=== PATIENT | female | born 1990 | race Caucasian/White ===

== ENCOUNTER 2020-05-26 15:01 | Emergency (ER) | payer BC, SELFPAY ==
[2020-05-26] VITALS (7 sets, daily range): BP systolic 103–143; BP diastolic 64–83; PULSE 55–62; RESP 15–18; TEMP 36.3; O2SAT 97–100
--- NOTE | ~2020-05-26 | XR_ITS ---
EXAMINATION: XR chest 2V 05/26/2020 16:09 INDICATION: Shortness of breath and chest pressure. Lightheadedness. PROCEDURE: 2 view chest COMPARISON: No prior studies for comparison. FINDINGS: The lungs are clear. The cardiomediastinal silhouette is within normal limits. There are no pleural effusions. There is no pneumothorax suspected. IMPRESSION: 1: NO ACUTE CARDIOPULMONARY DISEASE. Reviewed, dictated and finalized at location A.
--- NOTE | 2020-05-26 15:09 | ECG_ITS ---
Measurements Intervals [place] Rate: 62 P: 140 TN: 139 QRS: 144 QRSD: 92 T: -30 QT: 436 QTc: 444 Interpretive Statements SINUS RHYTHM ARM LEADS REVERSED BORDERLINE ST-T WAVE ABNORMALITY- ANT/INF LEADS BASELINE ARTIFACT- I, III, AVL BORDERLINE ECG Electronically Signed On 05-26-2020 15:19:31 CDT by Stevie Rene D.O.
[2020-05-26] MEDS: ASPIRIN 81 MG CHEWABLE TABLET 324 MG PO (15:29)
[2020-05-26 15:31] LABS: Basophils Percent Auto 0.5 % (0.2-1.2); Eosinophils Absolute Auto 0.1 K/mm3 (0-0.3); Eosinophils Percent Auto 0.9 % (0-4.4); Hemoglobin 12.1 g/dL (12.0-15.0); Immature Granulocyte Absolute 0.01 K/mm3 (0.00-0.031); Immature Granulocyte Percent A 0.2 % (0-0.5); Lymphocytes Percent Auto 38.3 % (18.3-44.2); Mean Corpuscular HGB Conc 33.6 g/dl (32-36); Mean Corpuscular Hemoglobin 28.3 pg (26-34); Mean Corpuscular Volume 84.1 fl (80-100); Mean Platelet Volume 10.5 fl (7.4-10.4); Monocytes Absolute Auto 0.5 K/mm3 (0.1-0.6); Monocytes Percent Auto 8.8 % (2.6-8.5); Neutrophils Absolute Auto 2.8 K/mm3 (1.3-6.7); Neutrophils Percent Auto 51.3 % (45.5-73.1); Platelet Count Result 254 k/mm3 (150-375); Red Blood Count 4.28 M/mm3 (4.2-5.4); Red Cell Distribution Width 13.2 % (11.5-14.5); White Blood Count 5.5 K/mm3 (4.5-10.0)
[2020-05-26 15:41] LABS: Anion Gap 15.2 mmol/L (7-16); Blood Urea Nitrogen 8 mg/dL (7-17); Calcium 8.8 mg/dL (8.4-10.2); Carbon Dioxide 26 mmol/L (22-30); Chloride 100 mmol/L (98-107); Estimated CRCL calculation 129 ml/min; Estimated Glomerular Filt Rate > 60; Glucose 80 mg/dL (65-105); Potassium 3.2 mmol/L (3.4-5.0); Sodium 138 mmol/L (137-145)
[2020-05-26 15:42] LABS: INR 1.1; Partial Thromboplastin Time 23.7 SECONDS (22.3-36.8); Prothrombin Time 13.6 Seconds (11.1-14.7)
[2020-05-26 15:53] LABS: Troponin I < 0.012 ng/mL (0.000-0.034)
--- NOTE | 2020-05-26 16:14 | ED.ARRPALP ---
HPI - Arrhythmia/Palpitations General Chief Complaint: Arrhythmia/Palpitations <Feliz Gutiérrez PA-C - Last Filed: 05/26/20 17:31> Stated Complaint: palpitations <Feliz Gutiérrez PA-C - Last Filed: 05/26/20 17:31> Time Seen by Provider: 05/26/20 16:00 <Feliz Gutiérrez PA-C - Last Filed: 05/26/20 17:31> Source: patient <COBY Chua Last Filed: 05/26/20 17:31> Mode of arrival: ambulatory <Feliz Gutiérrez PA-C - Last Filed: 05/26/20 17:31> Limitations: no limitations <Feliz Gutiérrez PA-C - Last Filed: 05/26/20 17:31> History of Present Illness HPI narrative: Patient is a 30-year-old female who presents to emergency department for evaluation of palpitations and chest tightness and feeling dyspneic over the last day patient notes she has had similar occurrence in the past which has not lasted as long patient on arrival to emergency department in the room in no distress patient has not been seen for this complaint nor she taken anything for her symptoms denies recent illness and is otherwise resting comfortably in the room on arrival noticing history of anxiety denies any suicidal or homicidal ideation <Feliz Gutiérrez PA-C - Last Filed: 05/26/20 17:31> Related Data Home Medications: Home Medications Medication Instructions Recorded Confirmed No Home Medications 05/26/20 05/26/20 <Feliz Gutiérrez PA-C - Last Filed: 05/26/20 17:31> Allergies/Adverse Reactions: Allergies Allergy/AdvReac Type Severity Reaction Status Date / Time No Known Allergies Allergy Verified 05/26/20 15:24 <Feliz Gutiérrez PA-C - Last Filed: 05/26/20 17:31> Review of Systems Review of Systems: All systems reviewed & are unremarkable except as noted in HPI and below <Feliz Gutiérrez PA-C - Last Filed: 05/26/20 17:31> PMFSH Past Medical History Medical History: Medical History (Updated 05/26/20 @ 17:31 by Feliz Gutiérrez PA-C) Anxiety <COBY Chua Last Filed: 05/26/20 17:31> Social History Social History: Social History (Updated 05/26/20 @ 16:16 by Feliz Gutiérrez PA-C) Smoking status: Current every day smoker Gender identity (if verbalized by the patient): Female <Feliz Gutiérrez PA-C - Last Filed: 05/26/20 17:31> Exam Narrative: Exam Narrative: GENERAL: Well-appearing, well-nourished, and in no acute distress. HEAD: Normocephalic, atraumatic. EYES: PERRLA and EOMI. ENT: Nares clear, no rhinorrhea or epistaxis. Mucous membranes moist. Oropharynx without tonsillar hypertrophy exudate or other lesions. NECK: Supple. No adenopathy or masses. CHEST: Clear to auscultation. No respiratory distress. No wheezes rales or rhonchi HEART: Regular rate and rhythm. No murmur heard. EXTREMITIES: Normal range of motion. No edema. SKIN: Warm, dry, no rash. NEURO: No focal deficits. Alert and oriented x3. PSYCH: Normal mood and affect. <Feliz Gutiérrez PA-C - Last Filed: 05/26/20 17:31> Course Course Emergency Course: Patient in the room in no distress no high risk changes in the evaluation resting comfortably felt appropriate for outpatient reevaluation by primary care patient is aware of case findings treatment plan diagnosis <Feliz Gutiérrez PA-C - Last Filed: 05/26/20 17:31> Vital Signs Vital signs: Vital Signs Temperature 97.4 F L 05/26/20 15:05 Pulse Rate 58 L 05/26/20 15:05 Respiratory Rate 17 05/26/20 15:05 Blood Pressure 126/74 05/26/20 15:05 Pulse Oximetry 100 05/26/20 15:05 Temperature 97.4 F L 05/26/20 15:05 Pulse Rate 58 L 05/26/20 17:30 Respiratory Rate 18 05/26/20 17:30 Blood Pressure 109/66 05/26/20 17:30 Pulse Oximetry 98 05/26/20 17:30 <Feliz Gutiérrez PA-C - Last Filed: 05/26/20 17:31> Vital Signs Temperature 97.4 F L 05/26/20 15:05 Pulse Rate 58 L 05/26/20 15:05 Respiratory Rate 17 05/26/20 15:05 Blood Pressure 126/74 07
[2020-05-26 17:14] LABS: D Dimer 0.27 ug/mL (<0.48)
== END 2020-05-26 18:43 | disposition home or self-care (01) ==
PROVIDERS: Emergency Medicine Emergency Medical Services; Emergency Provider Emergency Medicine; PCP Emergency Medicine
DX: R00.2 Palpitations (principal); F17.200 Nicotine dependence, unspecified, uncomplicated
CPT/HCPCS: 36415; 71046; 80048; 84484; 85025; 85380; 85610; 85730; 93005; 96374; 99284; A9270; J2060

== ENCOUNTER → 2021-04-07 12:02 | Outpatient (REF) | payer BC, SELFPAY | LOC: ANHLAB 12:02 | PROVIDERS: PCP Emergency Medicine; Visit Provider Nurse Practitioner | DX: D36.10 Benign neoplasm of peripheral nerves and autonomic nervous system, unspecified (principal) | CPT/HCPCS: 88305 ==

== ENCOUNTER 2024-06-27 00:37 | Day surgery (SDC) | payer BC, SELFPAY ==
[2024-06-26 09:05] VITALS: BMI 27.6
--- NOTE | 2024-06-26 09:11 | PC.NURSE ---
Report to the Outpatient Waiting Room, entrance under the green pavilion located off [facility], at time 0730_ on date _06/27/24_. Planned Procedure Time: _0930.? Time changes happen often and if your time is changed the preop area will call you the afternoon before. - You and your visitor will be asked to self-screen and do not enter if you have any COVID symptoms. Please call surgeon if you need to reschedule. - A mask is optional within the hospital at this time. Patients may have clear liquids (water, carbonated beverages, clear teas, apple juice) until 3 hours prior to surgery with a maximum of 20 ounces. - No food from midnight until time of surgery and no smoking - Infants may have breast milk until 4 hours before surgery, formula 6 hours prior to surgery. - Children will be allowed to drink immediately following surgery.? If applicable, please bring a bottle or sippy cup to assist with drinking. Juice, water, soda, and popsicles are readily available.? For infants on formula, please bring formula the day of surgery.? Pacifiers are allowed. Take only the following medications with a SIP of water on the morning of surgery: __ESCITALOPRAM DO NOT STOP ANY OF YOUR OTHER PRESCRIPTION MEDICATIONS PRIOR TO SURGERY EXCEPT THE FOLLOWING Medications to discontinue per physician NONE Date to take last dose Please no make-up, nail pashto, hairspray, perfume, deodorant, or body powder the day of surgery.? No jewelry (including any body piercings) or valuables the day of surgery, leave them at home.? Please take a shower or bath the night before, or the morning of, surgery with HIBICLENS antibacterial soap.? Wear comfortable, loose fitting clothing.? Children are encouraged to wear pajamas. - Jewelry must be removed prior to entering the operating room.? Rings and piercings that are not removed may be cut off. - The hospital will not accept responsibility for valuables.? - Please leave all valuables, including medications, at home the day of surgery. If you are going home after surgery, a licensed route sales delivery driver must drive you home.? - NO public transportation without another adult if you receive anesthesia. - We recommend that an adult stay with you for 24 hours following discharge. - We also recommend that you do not drive, make important decision, drink alcoholic beverages, or take any drugs that were not prescribed by your health care provider for at least 24 hours after your discharge time. For Pediatric surgeries, we recommend two adults accompany the child home. Follow any additional instructions given to you from your surgeon. Telephone instructions given to __PATIENT___and asked if any additional questions and then verbalized understanding. Patient advised to call surgeon office or pre surgery nurse liaison [phone] if any additional questions.
[2024-06-27] VITALS (12 sets, daily range): BP systolic 104–116; BP diastolic 60–69; PULSE 70–83; RESP 10–16; TEMP 36.6–36.7; O2SAT 99–100
--- NOTE | 2024-06-27 08:02 | WPDHPUPDATE1 ---
History and Physical Update Update Date/Time: 06/27/24 08:02 History and Physical has been reviewed, including an updated exam of the patient. There are NO changes in the patient's condition. Risks, benefits, and alternatives have been discussed and questions answered. Patient agrees to proceed with procedure.
[2024-06-27] MEDS: ACETAMINOPHEN 500 MG TABLET 1000 MG PO (08:05)
[2024-06-27] MEDS: LACTATED RINGERS 1,000 ML 30 ML IV CONT ×2 (08:20→11:22)
[2024-06-27] MEDS: KETOROLAC 15 MG/ML VIAL (*BKC) IV PUSH (09:12)
--- NOTE | 2024-06-27 09:46 | W.PM.PROC2 ---
Procedure Note - Detailed Date of Procedure 06/27/24 Pre-op Diagnosis Chr Cholelithiasis with cholelithiasis Post-op Diagnosis Same Procedure Performed Laparoscopic cholecystectomy Surgeon Zach Cid MD [employer] Mirtha Nava [facility] Anesthesia General and Local Indications Patient has had multiple episodes of postprandial right upper quadrant abdominal pain that will radiate to her back. It is associated with eating spicy and fatty foods. She often has nausea and even vomiting. She had an ultrasound which showed gallstones and a positive sonographic Carrasco sign. She is taken to surgery now for laparoscopic cholecystectomy for chronic cholecystitis with gallstones. Findings Chronic inflammation, multiple gallstones, normal liver, no biliary ductal dilatation Description of Procedure Patient was taken to surgery and induced into general anesthesia. The abdomen was prepped and draped. Trocars were placed in the usual fashion using iHydroRun optical trocars and a 5 mm camera. The gallbladder was decompressed with a laparoscopic aspirator. The cholecystotomy was closed with a Vicryl endoloop. Traction was placed on the fundus of the gallbladder as well as on the infundibulum. Dissection was carried out in the cholecystohepatic triangle. The cystic duct and cystic artery were dissected out very clearly. The gallbladder was dissected off the liver at its lower 3rd. Critical view was achieved. We then securely clipped and divided the cystic duct and cystic artery. The gallbladder was then further dissected free of its attachments to the liver. Once the gallbladder was free from the liver, it was placed in an Endo-Catch bag and retrieved through the 10 11 epigastric trocar. Once the gallbladder was removed, the epigastric trocar was replaced. We reviewed the right upper quadrant and other areas of dissection. Some irrigation and suctioning were used as well. All looked good with no evidence of bleeding or bile leakage. We then evacuated CO2 and removed the trocar sleeves. The fascia at the epigastric trocar site was closed with an 0 Vicryl suture. Skin wounds were closed with subcuticular 4-0 Monocryl skin suture. The wounds were dressed with Exofin surgical adhesive. The patient was awakened and taken to recovery in good condition. Sponge needle counts were correct x2. Estimated Blood Loss -5 Drains No Packing No Pathology Yes (Gallbladder) Complications None Condition Stable Disposition PACU [facility] Billing Surgery - Charge Forward: Surgery Billing (Laparoscopic cholecystectomy)
--- NOTE | 2024-06-27 09:47 | WPDANESEPPF ---
Anes - Initial Pre Proc Eval Procedure: Operation Date: 06/27/24 09:30 Proposed Procedures p Laparoscopic Cholecystectomy, Possible Open - Zach Cid MD Date/Time: 06/27/24 09:47 Surgeon: Zach Cid MD Pre Op Diagnosis: Chr Cholelithiasis with Calclous Patient Data Age: 34 Gender: F Height: 1.69 m Weight: 78.8 kg Last Vital Signs Temp 97.8 F 06/27/24 08:31 Pulse 81 06/27/24 08:31 Resp 16 06/27/24 08:31 BP 112/65 06/27/24 08:31 Pulse Ox 100 06/27/24 08:31 O2 Del Method Room Air 06/27/24 08:31 Allergies Allergy/AdvReac Type Severity Reaction Status Date / Time No Known Allergies Allergy Verified 06/27/24 07:48 Home Medications Medication Instructions Recorded Confirmed Type escitalopram oxalate 10 mg tablet 10 mg PO DAILY 04/07/21 06/27/24 History phentermine 37.5 mg tablet 37.5 mg PO DAILY 06/26/24 06/27/24 History ketorolac 10 mg tablet 10 mg PO Q6H 4 days #16 tabs 06/27/24 06/27/24 Rx oxycodone-acetaminophen 5 mg-325 0.5 - 1 tablet PO Q6H PRN pain #10 06/27/24 06/27/24 Rx mg tablet tabs Patient hx anesthesia problems: none Family hx anesthesia problems: none Results Review: All pre-operative results and documents have been reviewed as part of the pre-operative evaluation. [facility] Past Medical History Medical History Anxiety Surgical History Surgical History History of section 08/07/09, 04/11/15, 12/08/16 Social History Social History Smoking status: Never smoker Alcohol intake: former Alcohol use details: NO ALCOHOL FOR SEVERAL YRS Substance use: never Substance use type: does not use Do You Feel Safe in your Home?: Yes Lack of Transportation: No Lack of Food: Never True Current Housing: I Have Housing Concerned About Future Housing: No Difficulty Paying Gas/Electric Bills: No Difficulty Paying for Meds: No Currently Unemployed: No Education: High School Diploma/GED Difficulty w/ Childcare or Family Care: No Living arrangements: with family Gender identity (if verbalized by the patient): Female Rose Mary - Addi Final PreProcedure Day of Procedure 06/27/24 09:47 Patient weight: normal Heart: regular rate and rhythm Lungs: clear to auscultation Airway: Mallampati scale Neurological: alert and oriented Last oral intake: >/= 8 hours ASA classification: II Emergent: no Anesthetic plan: proceed Anesthesia type and monitoring: general ETT and standard monitoring Results Review: All pre-operative results and documents have been reviewed as part of the pre-operative evaluation. Pt denies smoking history. Informed Consent: The patient's anesthetic plan and its attendant risks and benefits were discussed with the patient/family/POA. Questions were solicited and answers provided to the satisfaction of the patient/family/POA.
[2024-06-27] MEDS: BUPIVACAINE/EPINEPHRINE 0.5% 50 ML VIAL 30 ML INFILTRATE (10:12)
[2024-06-27] MEDS: ceFAZolin 2 GM/D5W 50 ML 2 GM/50 ML BAG IVPB (10:12)
[2024-06-27] MEDS: fentaNYL CITRATE INJ (*CRX) 100 MCG/2 ML VIAL 25 MCG IV PUSH ×2 (12:34→12:39)
[2024-06-27] MEDS: oxyCODONE HCL (*CRX) 5 MG TAB IR PO (13:22)
== END 2024-06-27 14:02 | disposition home or self-care (01) ==
PROVIDERS: PCP Emergency Medicine; Visit Provider Surgery
PROC: 0FT44ZZ Resection of Gallbladder, Percutaneous Endoscopic Approach (ICD-10-PCS; CPT 47562; principal; 2024-06-27 09:30)
DX: K80.10 Calculus of gallbladder with chronic cholecystitis without obstruction (principal); F41.9 Anxiety disorder, unspecified
CPT/HCPCS: 47562; 88304; A9270; J0690; J1100; J1170; J1200; J1885; J2250; J2405; J2704; J3010; J7120